=== PATIENT | female | born 1995 | race Caucasian/White ===

== ENCOUNTER 2018-11-19 06:49 | Emergency (ER) | payer BC, OTHER ==
[~2018-11-19] VITALS: Ht 157.5 cm; Wt 72.7 kg
[2018-11-19] MEDS ORDERED: FLUO20CA19 (06:57)
[2018-11-19] MEDS ORDERED: ALPR1TAB3 (06:57)
[2018-11-19] MEDS ORDERED: VITA1TAB23 PO (06:57)
[2018-11-19] MEDS ORDERED: NORCO, ANEXSIA 5/325MG TABLET (HYDROcodone/ACETAMINOPHEN) PO ONE (07:30)
--- NOTE | 2018-11-19 08:02 | REP ---
Clinical: Trauma/fall with neck pain . Technique: AP, lateral, and swimmers views. Findings: Alignment and lordosis is maintained. There is no evidence for acute fracture / compression injury or subluxation. No significant degenerative changes are appreciated. Impression: Normal cervical spine series. Electronically Signed by Osmin Grider MD 11/19/2018 07:54 A
--- NOTE | 2018-11-19 08:03 | REP ---
Clinical: Fall with bilateral hip pain. Technique: Frontal view of the pelvis with neutral and frog lateral views of the right and left hip. Findings: Osseous structures and joint spaces are intact and normal. Hip joints appear symmetric on frontal pelvic radiograph. No acute fracture dislocation. No evidence for healed injury. No significant degenerative or congenital abnormalities are appreciated. Surrounding soft tissues are unremarkable. Impression: Normal pelvis and bilateral hip series. Electronically Signed by Osmin Grider MD 11/19/2018 07:55 A
--- NOTE | 2018-11-19 08:11 | REP ---
Clinical: Trauma/fall with lower back pain. Comparison: 09/24/2015 . Technique: AP, lateral, bilateral oblique, and coned-down views. Findings: Alignment and lordosis is maintained. There is evidence to suggest a limbus vertebra versus old fracture involving the anterior-superior margin of the L2 which is unchanged compared to 09/24/2015. Remainder examination is normal. Impression: No acute lumbosacral spine trauma/injury. Alignment and lordosis maintained. Electronically Signed by Osmin Grider MD 11/19/2018 08:03 A
--- NOTE | 2018-11-19 08:15 | REP ---
Clinical: Fall with back pain. Technique: AP and lateral thoracic spine radiographs. Findings: There appears to be an old asymmetric compression deformity involving the right side of the T8 as well as limbus vertebra versus old fracture involving L2. There is no evidence for acute fracture / compression injury or subluxation. Impression: Chronic findings. No acute fracture or subluxation. Electronically Signed by Osmin Grider MD 11/19/2018 08:06 A
[2018-11-19] MEDS ORDERED: ROBA500T PO (08:24)
[2018-11-19] MEDS ORDERED: NAPR-885 PO (08:24)
[2018-11-19] MEDS ORDERED: CYCLOBENZAPRINE 10 MG TAB PO ONE (08:30)
[2018-11-19 08:36] VITALS: BP 120/63
[2018-11-19] MEDS ORDERED: KETOROLAC 60 MG/2 ML VIAL (J1885) IM ONE (08:45)
== END 2018-11-19 09:05 | disposition home or self-care (01) ==
LOC: M ED 06:49
DX: M54.5 Low back pain (principal); W10.8XXA Fall (on) (from) other stairs and steps, initial encounter; Y92.098 Other place in other non-institutional residence as the place of occurrence of the external cause; F17.200 Nicotine dependence, unspecified, uncomplicated; Z88.0 Allergy status to penicillin; Z88.1 Allergy status to other antibiotic agents; Z79.899 Other long term (current) drug therapy
CPT/HCPCS: 72040; 72072; 72110; 73521; 96372; 99283; J1885

== ENCOUNTER 2019-01-21 10:58 | Emergency (ER) | payer BC, OTHER ==
[~2019-01-21] VITALS: Ht 157.5 cm; Wt 67.5 kg
[~2019-01-21 10:58] MED LIST: ALPR1TAB3 PO; FLUO20CA19; NAPR-885 PO; ROBA500T PO; VITA1TAB23 PO
[2019-01-21] MEDS ORDERED: PROZ20CA11 PO (11:07)
[2019-01-21] MEDS ORDERED: ACETAMINOPHEN TAB 650MG DOSE (2X325MG) PO ONE (11:45)
[2019-01-21 12:04] LABS: HEMATOCRIT 40.2 % (36.0-47.0); HEMOGLOBIN 13.6 g/dl (12.0-15.5); MEAN CORPUSCULAR HEMOGLOBIN 31.3 pg (27.0-33.0); MEAN CORPUSCULAR HGB CONC 33.8 g/dl (32.0-36.5); MEAN CORPUSCULAR VOLUME 92.6 fl (80.0-96.0); PLATELET COUNT, AUTOMATED 204 10^3/uL (150-450); RED BLOOD COUNT 4.34 10^6/uL (4.00-5.40)
[2019-01-21] MEDS ORDERED: CLEO300C2 PO (12:34)
[2019-01-21 12:42] VITALS: BP 118/72
== END 2019-01-21 12:49 | disposition home or self-care (01) ==
LOC: M ED 10:58
DX: J02.9 Acute pharyngitis, unspecified (principal); J35.8 Other chronic diseases of tonsils and adenoids; H92.03 Otalgia, bilateral; F41.9 Anxiety disorder, unspecified; F32.9 Major depressive disorder, single episode, unspecified; F17.210 Nicotine dependence, cigarettes, uncomplicated; Z88.0 Allergy status to penicillin; Z79.899 Other long term (current) drug therapy

== ENCOUNTER 2019-02-27 06:05 | Day surgery (SDC) | payer BC, OTHER ==
[~2019-02-27] VITALS: Ht 157.5 cm; Wt 65.5 kg
[~2019-02-27 06:05] MED LIST changes: +CLEO300C2 PO; +MULTCAP PO; +PROZ20CA11 PO
[2019-02-27 06:50] LABS: URINE PREG TEST NEGATIVE (NEGATIVE)
[2019-02-27] MEDS ORDERED: LIDOCAINE 2% INJ 100 MG/5 ML SDV (FOR ANES.) As Ordered ONE (06:51)
[2019-02-27] MEDS ORDERED: propofoL 200 MG/20 ML VIAL As Ordered ONE (06:51)
[2019-02-27] MEDS ORDERED: ROCURONIUM BROMIDE 50 MG/5 ML VIAL As Ordered ONE (06:51)
[2019-02-27] MEDS ORDERED: KETOROLAC 60 MG/2 ML VIAL (J1885) As Ordered ONE (06:54)
[2019-02-27] MEDS ORDERED: dexameTHASONE 4 MG/ML 1ML VIAL (J1100) As Ordered ONE (06:54)
[2019-02-27] MEDS ORDERED: ONDANSETRON 4MG/2ML VIAL (J2405) As Ordered ONE (06:54)
[2019-02-27] MEDS ORDERED: fentaNYL 100 MCG/2 ML INJECTION (J3010) As Ordered ONE (06:57)
[2019-02-27] MEDS ORDERED: MIDAZOLAM INJ 2 MG/2 ML VIAL (J2250) As Ordered ONE (06:57)
[2019-02-27] MEDS ORDERED: SUGAMMADEX SODIUM 500 MG/5 ML VIAL (BRIDION) As Ordered ONE (07:07)
[2019-02-27] MEDS: LIDOCAINE W/EPINEPHRINE 1% 20ML VIAL As Ordered ONE ×2 (07:55→07:58)
[2019-02-27] MEDS: BUPIVACAINE/EPIN 0.5% 30 ML VIAL As Ordered ONE ×2 (07:55→07:58)
[2019-02-27] MEDS ORDERED: ONDANSETRON 4MG/2ML VIAL (J2405) IV PRN (08:45)
[2019-02-27] MEDS ORDERED: fentaNYL 100 MCG/2 ML INJECTION (J3010) IV PRN (08:45)
[2019-02-27] MEDS ORDERED: NORCO, ANEXSIA 5/325MG TABLET (HYDROcodone/ACETAMINOPHEN) PO PRN (08:45)
[2019-02-27] MEDS ORDERED: LR 1,000 ML IV SCH ×2 (08:45)
[2019-02-27] MEDS ORDERED: ACETAMINOPH W/CODEINE #3 TAB UD PO PRN (09:00)
[2019-02-27] MEDS ORDERED: ACETAMINOPHEN/CODEINE 300MG/30MG 12.5 ML UDC PO PRN (09:25)
[2019-02-27 10:05] VITALS: BP 109/70
--- NOTE | 2019-02-27 12:12 | RO ---
DATE OF PROCEDURE: 02/27/2019 PREOPERATIVE DIAGNOSIS: Chronic tonsillitis. POSTOPERATIVE DIAGNOSIS: Chronic tonsillitis. PROCEDURE: Tonsillectomy. SURGEON: Shaw Olivo MD ASSISTANT INFANT TODDLER TEACHER: ANESTHESIA: DESCRIPTION OF PROCEDURE: Under general anesthesia with the patient intubated, a Knight-[place] mouth gag was inserted. The tonsil area was infiltrated with lidocaine and infiltrated with Marcaine. Using cautery, I dissected the tonsil free from its bed on both sides. The base and apex and other areas were cauterized with the suction cautery. The patient tolerated the procedure well. No blood loss. The patient extubated and transferred to the recovery room in excellent condition.
== END 2019-02-27 10:32 | disposition home or self-care (01) ==
LOC: M SDC 06:05
PROVIDERS: ATTEND Otolaryngology
DX: J35.01 Chronic tonsillitis (principal); F41.9 Anxiety disorder, unspecified; F17.210 Nicotine dependence, cigarettes, uncomplicated; Z88.0 Allergy status to penicillin; Z79.899 Other long term (current) drug therapy
CPT/HCPCS: 42826; 84703; 88302; J1100; J1885; J2250; J2405; J3010

== ENCOUNTER → 2019-06-05 | Outpatient (CLI) | payer BC, MEDICAID, OTHER, SELFPAY | LOC: M RAD 14:44 | PROVIDERS: ATTEND Nurse Practitioner Family | DX: Z53.9 Procedure and treatment not carried out, unspecified reason (principal) ==

== ENCOUNTER → 2019-08-29 | Outpatient (CLI) | payer OTHER ==
--- NOTE | 2019-08-29 16:16 | REP ---
Obstetric sonography: History: Supervision of for anatomy. Findings: Scanning through the gravid uterus demonstrate a single living intrauterine gestation in a breech lie. motion is observed and heart rate is recorded at 141 beats per minute. An anterior grade zero placenta is seen without evidence of previa or abruption. Amniotic fluid is subjectively normal. Closed cervical length was viewed transabdominally and measures 3.7 cm. No extrauterine abnormalities observed. There is a defect in the anterior abdominal wall to the left of the abdominal wall cord insertion with small bowel loops protruding through the defect floating in the amniotic fluid. The defect is approximate 7 mm in size. The finding is consistent with gastroschisis. No other anatomic abnormality is observed. The following additional anatomic structures are identified and felt to be unremarkable: cranium, choroid plexus, cavum, cerebellum posterior fossa, face and profile, lungs, four-chamber heart with left and right ventricular outflow tract views, diaphragm, left-sided stomach, three-vessel cord, kidneys and bladder, spine, upper and lower extremities. Biometry chart: BPD 4.3 cm 19 weeks 0 days Head circumference 15.1 cm 18 weeks 1 day abdominal circumference 12.1 cm 17 weeks 5 days Femur length 2.8 cm 18 weeks 4 days Humeral length 2.7 cm 18 weeks 3 days cerebellar diameter 1.9 cm 18 weeks 4 days HC/AC ratio normal 1.25 cephalic index normal 0.82 estimated weight 227 grams, 0 pounds 7 ounces, 41st percentile for 18 weeks 2 days. Impression: 1. Viable single intrauterine gestation 18 weeks 3 days by today's composite sonographic criteria. ETHEL by today's sonography January 27, 2020.2. There is a abnormality consistent with gastroschisis with small bowel loops protruding from the anterior abdominal wall defect into the amniotic fluid. Electronically Signed by Justin Bustillo MD 08/29/2019 06:01 P
== END ==
LOC: M RAD 12:56
PROVIDERS: ATTEND Specialist
DX: Z34.02 Encounter for supervision of normal first pregnancy, second trimester (principal)

== ENCOUNTER → 2019-09-07 | Outpatient (CLI) | payer MEDICAID, OTHER | LOC: M PLALAB 12:01 | PROVIDERS: ATTEND Specialist | DX: Z13.79 Encounter for other screening for genetic and chromosomal anomalies (principal) ==

== ENCOUNTER → 2019-11-09 | Outpatient (CLI) | payer OTHER ==
[~2019-11-09] MED LIST changes: -FLUO20CA19; +FLUO20CA22
[2019-11-09 13:45] LABS: HEMATOCRIT 33.7 % (36.0-47.0); HEMOGLOBIN 11.5 g/dl (12.0-15.5); MEAN CORPUSCULAR HEMOGLOBIN 31.6 pg (27.0-33.0); MEAN CORPUSCULAR HGB CONC 34.1 g/dl (32.0-36.5); MEAN CORPUSCULAR VOLUME 92.6 fl (80.0-96.0); PLATELET COUNT, AUTOMATED 245 10^3/uL (150-450); RED BLOOD COUNT 3.64 10^6/uL (4.00-5.40); WHITE BLOOD COUNT 10.6 10^3/uL (4.0-10.0)
== END ==
LOC: M LAB 11:57
PROVIDERS: ATTEND Specialist
DX: Z34.82 Encounter for supervision of other normal pregnancy, second trimester (principal)

== ENCOUNTER 2019-12-20 06:18 | Inpatient (IN) | payer MEDICAID, OTHER ==
[~2019-12-20] VITALS: Ht 157.5 cm; Wt 82.2 kg
[2019-12-20] VITALS (8 sets, daily range): BP systolic 97–114; BP diastolic 55–73
[2019-12-20] MEDS ORDERED: LR 1,000 ML IV SCH (08:14)
[2019-12-20] MEDS ORDERED: LACTATED RINGER'S 1000 ML IV STA (08:14)
[2019-12-20] MEDS ORDERED: BICITRA 30ML SOLN UDC As Ordered ONE (08:44)
[2019-12-20] MEDS ORDERED: ceFAZolin 2 GM/D5W 50 ML IV BAG (J0690 PER 500MG) As Ordered ONE (08:44)
[2019-12-20] MEDS ORDERED: ceFAZolin SOD 2 GM in IV 1 EA IV ONE (08:45)
[2019-12-20] MEDS ORDERED: BICITRA 30ML SOLN UDC PO ONE (08:45)
[2019-12-20] MEDS ORDERED: AZITHROMYCIN INJ 500 MG, VIAL MATE ADAPTER 1 EACH in D5W 250 ML IV ONE (08:45)
[2019-12-20] MEDS ORDERED: AZITHROMYCIN INJ 500MG VIAL (J0456 PER 500MG) As Ordered ONE (08:45)
[2019-12-20 08:54] LABS: HEMATOCRIT 37.4 % (36.0-47.0); HEMOGLOBIN 12.7 g/dl (12.0-15.5); MEAN CORPUSCULAR HEMOGLOBIN 30.9 pg (27.0-33.0); PLATELET COUNT, AUTOMATED 267 10^3/uL (150-450); RED BLOOD COUNT 4.11 10^6/uL (4.00-5.40); WHITE BLOOD COUNT 13.6 10^3/uL (4.0-10.0)
[2019-12-20] MEDS ORDERED: CLINDAMYCIN 900 MG in IV 1 EA IV ONE (09:00)
[2019-12-20] MEDS ORDERED: MORPHINE PRES-FREE INJ 10 MG/10 ML VIAL (J2274) As Ordered ONE (09:00)
[2019-12-20] MEDS ORDERED: OXYTOCIN 30 UNITS IN 0.9% NaCl 500ML IV BAG (J2590) As Ordered ONE ×2 (09:00→11:18)
[2019-12-20] MEDS ORDERED: GENTAMICIN 400 MG in D5W 50 ML IV ONE (09:00)
[2019-12-20] MEDS ORDERED: ONDANSETRON 4MG/2ML VIAL IV PRN ×2 (09:44→11:15)
[2019-12-20] MEDS ORDERED: NALOXONE INJ 0.4MG/1ML VIAL (J2310 PER 1MG) IV PRN ×2 (09:44)
[2019-12-20] MEDS ORDERED: diphenhydrAMINE 50MG/ML VIAL (J1200) IV PRN (09:44)
[2019-12-20] MEDS ORDERED: METOCLOPRAMIDE INJ 10MG/2ML VIAL (J2765 PER 1) IV PRN (09:44)
[2019-12-20] MEDS ORDERED: NALBUPHINE HCL 10 MG/ML AMP (J2300) IV PRN (09:44)
[2019-12-20] MEDS ORDERED: OXYTOCIN INJ 10 UNITS/ML VIAL (J2590) As Ordered ONE (09:49)
[2019-12-20] MEDS ORDERED: ROCURONIUM BROMIDE 50 MG/5 ML VIAL As Ordered ONE (09:55)
[2019-12-20] MEDS ORDERED: propofoL 200 MG/20 ML VIAL As Ordered ONE ×2 (09:55→10:47)
[2019-12-20] MEDS ORDERED: LIDOCAINE 2% 100MG/5ML SDV (FOR ANES.) As Ordered ONE (09:55)
[2019-12-20] MEDS ORDERED: MIDAZOLAM INJ 2MG/2ML VIAL (J2250 PER 1MG) As Ordered ONE (10:03)
[2019-12-20] MEDS ORDERED: fentaNYL 100 MCG/2 ML INJECTION (J3010) As Ordered ONE ×2 (10:04→11:10)
[2019-12-20] MEDS ORDERED: PHENYLephrine HCL 500 MCG/5 ML (100MCG/ML) SYRINGE (J2370) As Ordered ONE (10:16)
[2019-12-20 10:19] LABS: CORD GAS ABE V -3.1; CORD GAS HCO3 V 22.7 MEQ/L; CORD GAS O2 SAT V 99.7 %; CORD GAS PCO2 V 43.3 mmHg; CORD GAS PH V 7.338 UNITS; CORD GAS PO2 V 136.3 mmHg; CORD GAS TCO2 V 24.1 MEQ/L
[2019-12-20 10:22] LABS: CORD GAS ABE A -4.6; CORD GAS HCO3 A 21.5 MEQ/L; CORD GAS O2 SAT A 96.2 %; CORD GAS PCO2 A 43.2 mmHg; CORD GAS PH A 7.315 UNITS; CORD GAS PO2 A 63.5 mmHg; CORD GAS SBC A 20.7 MEQ/L; CORD GAS TCO2 A 22.8 MEQ/L
[2019-12-20] MEDS ORDERED: ACETAMINOPHEN 1000MG 100ML IV BTL (OFIRMEV) (J0131 PER 10MG) As Ordered ONE (10:24)
[2019-12-20] MEDS ORDERED: KETOROLAC 60 MG/2 ML VIAL As Ordered ONE (10:26)
[2019-12-20] MEDS ORDERED: SUGAMMADEX SODIUM 500 MG/5 ML VIAL (BRIDION) As Ordered ONE (10:28)
[2019-12-20] MEDS ORDERED: ONDANSETRON 4 MG TAB PO PRN (10:45)
[2019-12-20] MEDS ORDERED: RHOGAM 300 MCG (1500 IU) INJ (J2790) IM SCH (10:45)
[2019-12-20] MEDS ORDERED: ACETAMINOPHEN 500 MG TAB PO PRN (10:45)
[2019-12-20] MEDS ORDERED: PERCOCET 5MG/325MG TAB PO PRN (10:45)
[2019-12-20] MEDS ORDERED: OXYTOCIN DRIP 30 UNITS in IV 1 EA IV SCH (10:45)
[2019-12-20] MEDS ORDERED: MEASLES,MUMPS,RUBELLA VACCINE INJ (MMR-II) (90707) SC SCH (10:45)
[2019-12-20] MEDS ORDERED: PROMETHAZINE 25 MG TAB PO PRN (10:45)
[2019-12-20] MEDS ORDERED: oxyCODONE 5MG TAB As Ordered ONE ×2 (11:10→11:44)
[2019-12-20] MEDS ORDERED: IBUP80TA PO (11:11)
[2019-12-20] MEDS ORDERED: PERCOCET PO (11:11)
[2019-12-20] MEDS ORDERED: DOCU100C16 PO (11:11)
[2019-12-20] MEDS ORDERED: MORPHINE 2 MG/ML 1ML VIAL (J2270) IV PRN (11:15)
[2019-12-20] MEDS: fentaNYL 100 MCG/2 ML INJECTION (J3010) IV PRN ×4 (11:16→11:35)
[2019-12-20] MEDS: oxyCODONE 5MG TAB PO PRN ×2 (11:17→11:53)
[2019-12-20 12:13] LABS: HEPATITIS C VIRUS ABY INDEX 0.1 INDEX (<0.8); HIV 1&2 SCREEN CENTAUR NEGATIVE (NEGATIVE)
[2019-12-20] MEDS: LR 1,000 ML IV SCH ×2 (12:58→21:36)
[2019-12-20] MEDS: PERCOCET 5MG/325MG TAB PO PRN (15:55)
[2019-12-20] MEDS: KETOROLAC 30 MG/ML 1ML VIAL IV SCH ×2 (16:51→22:52)
[2019-12-20] MEDS: DOCUSATE SODIUM 100 MG CAP PO SCH (20:48)
[2019-12-21] MEDS: PERCOCET 5MG/325MG TAB PO PRN (02:42)
[2019-12-21 02:48] VITALS: BP 106/67
[2019-12-21] MEDS: KETOROLAC 30 MG/ML 1ML VIAL IV SCH (05:17)
[2019-12-21 06:06] VITALS: BP 106/71
[2019-12-21 07:17] LABS: HEMATOCRIT 28.1 % (36.0-47.0); MEAN CORPUSCULAR HEMOGLOBIN 30.9 pg (27.0-33.0); MEAN CORPUSCULAR HGB CONC 33.5 g/dl (32.0-36.5); MEAN CORPUSCULAR VOLUME 92.4 fl (80.0-96.0); PLATELET COUNT, AUTOMATED 233 10^3/uL (150-450); RED BLOOD COUNT 3.04 10^6/uL (4.00-5.40); WHITE BLOOD COUNT 16.5 10^3/uL (4.0-10.0)
[2019-12-21 07:22] LABS: HEMOGLOBIN 9.4 g/dl (12.0-15.5)
[2019-12-21] MEDS ORDERED: BOOSTRIX/ADACEL VACCINE (DIPHTH/PERTUSS/ACELL/TETANUS) 0.5ML SYR IM ONE (09:00)
[2019-12-21] MEDS ORDERED: PRENATAL VITAMINS CHEWABLE TABLET PO SCH (09:00)
[2019-12-21] MEDS: DOCUSATE SODIUM 100 MG CAP PO SCH (09:00)
[2019-12-21 10:00] VITALS: BP 99/57
[2019-12-21] MEDS ORDERED: IBUPROFEN 800 MG TAB PO SCH (13:00)
--- NOTE | 2019-12-23 13:46 | DSES ---
DATE OF ADMISSION: 12/20/2019 DATE OF DISCHARGE: 12/21/2019 A 24-year-old G1 at 34 weeks gestation presents with regular contractions and leaking fluid. Her course is significant for gastroschises diagnosed early on. She has been seen at the center in consultation for this. HOSPITAL COURSE: Patient was evaluated and found to be in early labor with ruptured membranes on 12/20/2019. She was admitted to the hospital at that point. Initial plan was to attempt a vaginal delivery with known history of gastroschises; however, heart rate tracing became nonreassuring, in early labor, remote from delivery, and the decision was made to perform section. On 12/20/2019 patient underwent section for a 4-pound 15-ounce infant, scores 8 and 9. Patient's postoperative course was unremarkable. She had adequate return of bladder and bowel function. Her postoperative hemoglobin was 9.4 grams per deciliter. The baby was transferred to [facility] in [place] for further management. The patient strongly desired discharge on postoperative day #1 in order to be with the baby. The patient was discharged on postoperative day #1. ADMISSION DIAGNOSIS: at 34 weeks, labor. gastroschises. POSTOPERATIVE DIAGNOSIS: Delivered. PROCEDURE: Primary low transverse section. DISPOSITION: The patient will followup with Dr. Barrientos in 2 weeks. Instructions were reviewed.
== END 2019-12-21 11:25 | disposition home or self-care (01) | DRG 540 ==
LOC: M LDO 06:18 → M LDI 08:40 → M OBS 12:24
PROVIDERS: ADMIT Obstetrics & Gynecology; ATTEND Obstetrics & Gynecology
PROC: 10D00Z1 Extraction of Products of Conception, Low, Open Approach (ICD-10-PCS; principal; 2019-12-20 09:00)
DX: O42.013 Preterm premature rupture of membranes, onset of labor within 24 hours of rupture, third trimester (principal); O36.5930 Maternal care for other known or suspected poor fetal growth, third trimester, not applicable or unspecified; O76 Abnormality in fetal heart rate and rhythm complicating labor and delivery; Z3A.34 34 weeks gestation of pregnancy; Z37.0 Single live birth; O35.1XX0 Maternal care for (suspected) chromosomal abnormality in fetus, not applicable or unspecified

== ENCOUNTER → 2020-09-30 | Outpatient (REF) | payer OTHER, MEDICAID ==
[~2020-09-30] MED LIST changes: +ASCO250T20 PO; +DOCU100C16 PO; +IBUP80TA PO; +PERCOCET PO; -VITA1TAB23 PO
[2020-09-30 17:52] LABS: BASO % 0.4 % (0.0-1.0); EOS # 0.1 10^3/uL (0.0-0.5); EOS % 2.1 % (0.0-3.0); HEMATOCRIT 44.3 % (36.0-47.0); HEMOGLOBIN 14.5 g/dl (12.0-15.5); LYMPH # 2.2 10^3/uL (1.5-5.0); LYMPH % 31.7 % (24.0-44.0); MEAN CORPUSCULAR HEMOGLOBIN 29.8 pg (27.0-33.0); MEAN CORPUSCULAR HGB CONC 32.7 g/dl (32.0-36.5); MEAN CORPUSCULAR VOLUME 91.2 fl (80.0-96.0); MONO # 0.6 10^3/uL (0.0-0.8); MONO % 8.7 % (0.0-8.0); NEUTROPHILS # 3.9 10^3/uL (1.5-8.5); NEUTROPHILS % 56.8 % (36.0-66.0); PLATELET COUNT, AUTOMATED 294 10^3/uL (150-450); RED BLOOD COUNT 4.86 10^6/uL (4.00-5.40); WHITE BLOOD COUNT 6.8 10^3/uL (4.0-10.0)
[2020-09-30 18:06] LABS: ALBUMIN 3.9 GM/DL (3.2-5.2); ALT/SGPT 17 U/L (12-78); BILIRUBIN,TOTAL 0.4 MG/DL (0.2-1.0); BLOOD UREA NITROGEN 7 MG/DL (7-18); CALCIUM LEVEL 9.1 MG/DL (8.5-10.1); CARBON DIOXIDE LEVEL 26 MEQ/L (21-32); CHLORIDE LEVEL 108 MEQ/L (98-107); GLOMERULAR FILTRATION RATE > 60.0 (>60); GLUCOSE, FASTING 75 MG/DL (70-100); LIPASE 152 U/L (73-393); SODIUM LEVEL 142 MEQ/L (136-145); THYROGLOBULIN ANTIBODY 69.4 U/ML (<60.0); THYROID PEROXIDASE ANTIBODY > 1300.0 U/ML (<60.0); TOTAL PROTEIN 7.4 GM/DL (6.4-8.2)
== END ==
LOC: M LAB REF 16:10
PROVIDERS: ATTEND Physician Assistant
DX: R63.5 Abnormal weight gain (principal); Z83.49 Family history of other endocrine, nutritional and metabolic diseases; R10.13 Epigastric pain

== ENCOUNTER → 2020-10-17 | Outpatient (CLI) | payer OTHER ==
--- NOTE | 2020-10-17 12:06 | REP ---
INDICATION: AUTOIMMUNE THYROIDITIS COMPARISON: None. TECHNIQUE: Calderón scale and color evaluation of the thyroid gland using the linear high frequency transducer. FINDINGS: The thyroid gland is moderately heterogeneous with relatively normal symmetric parenchymal vascularity. Right thyroid lobe measures 4.2 x 1.4 x 1.6 cm without discrete nodule or cyst. Left thyroid lobe measures 3.9 x 1.8 x 1.6 cm and includes 5 x 6 x 5 mm upper pole complex cyst with few scattered punctate calcifications. Isthmus measures 4 mm in width. IMPRESSION: Heterogeneous thyroid gland is nonspecific in appearance. Single small complex 6 mm left upper pole cyst. <Electronically signed by Osmin Grider > 10/17/20 [id number]
== END ==
LOC: M RAD 11:23
PROVIDERS: ATTEND Physician Assistant
DX: E06.3 Autoimmune thyroiditis (principal)

== ENCOUNTER → 2020-11-11 | Outpatient (REF) | payer OTHER | LOC: M LAB REF 17:10 | PROVIDERS: ATTEND Internal Medicine Endocrinology, Diabetes & Metabolism | DX: E04.1 Nontoxic single thyroid nodule (principal) ==

== ENCOUNTER 2020-11-22 19:57 | Emergency (ER) | payer OTHER ==
[~2020-11-22] VITALS: Ht 157.5 cm; Wt 88.5 kg
[2020-11-22] MEDS ORDERED: CYCL-707 PO (20:19)
[2020-11-22] MEDS ORDERED: MELO7.5T35 PO (20:19)
[2020-11-22] MEDS ORDERED: ASPIRIN 81 MG CHEW TABLET PO ONE (20:35)
[2020-11-22 20:52] LABS: BASO % 0.3 % (0.0-1.0); EOS # 0.1 10^3/uL (0.0-0.5); EOS % 2.3 % (0.0-3.0); HEMATOCRIT 43.5 % (36.0-47.0); HEMOGLOBIN 14.4 g/dl (12.0-15.5); LYMPH # 1.8 10^3/uL (1.5-5.0); LYMPH % 29.4 % (24.0-44.0); MEAN CORPUSCULAR HEMOGLOBIN 29.7 pg (27.0-33.0); MEAN CORPUSCULAR HGB CONC 33.1 g/dl (32.0-36.5); MEAN CORPUSCULAR VOLUME 89.7 fl (80.0-96.0); MONO # 0.8 10^3/uL (0.0-0.8); MONO % 13.5 % (2.0-8.0); NEUTROPHILS # 3.4 10^3/uL (1.5-8.5); NEUTROPHILS % 54.2 % (36.0-66.0); PLATELET COUNT, AUTOMATED 257 10^3/uL (150-450); RED BLOOD COUNT 4.85 10^6/uL (4.00-5.40); WHITE BLOOD COUNT 6.2 10^3/uL (4.0-10.0)
[2020-11-22 21:06] LABS: INR 0.94; PROTHROMBIN TIME 12.8 SECONDS (12.5-14.3)
--- NOTE | 2020-11-22 21:17 | ECGEPIP ---
[facility] - ED Test Date: 2020-11-22 Pat Name: IBETH SANCHEZ Department: Room: - Gender: Female Operations Project Manager: Sigrid PEREIRA : 1995 Requested By: LULA ALEXIS Order Number: [id number] Reading MD: Tonio Conley Measurements Intervals [place] Rate: 97 P: 33 MI: 118 QRS: 55 QRSD: 100 T: 16 QT: 362 QTc: 459 Interpretive Statements Normal sinus rhythm Nonspecific ST and T wave abnormality SIMILAR TO 12/12/14 Electronically Signed on 11-22-2020 21:17:03 EDT by Tonio Conley
[2020-11-22 21:20] LABS: ALBUMIN 3.7 GM/DL (3.2-5.2); ALT/SGPT 19 U/L (12-78); BILIRUBIN,DIRECT < 0.1 MG/DL (0.0-0.2); BILIRUBIN,TOTAL 0.3 MG/DL (0.2-1.0); BLOOD UREA NITROGEN 14 MG/DL (7-18); CALCIUM LEVEL 9.3 MG/DL (8.5-10.1); CARBON DIOXIDE LEVEL 27 MEQ/L (21-32); CHLORIDE LEVEL 108 MEQ/L (98-107); CREATININE FOR GFR 0.73 MG/DL (0.55-1.30); GLOMERULAR FILTRATION RATE > 60.0 (>60); GLUCOSE, FASTING 90 MG/DL (70-100); POTASSIUM SERUM 3.8 MEQ/L (3.5-5.1); SODIUM LEVEL 141 MEQ/L (136-145); TOTAL PROTEIN 7.4 GM/DL (6.4-8.2)
--- NOTE | 2020-11-22 21:50 | REPVR ---
PROCEDURE INFORMATION: Exam: XR Chest Exam date and time: 11/22/20 (9:00pm) Age: 25 years old Clinical indication: Chest pain TECHNIQUE: Imaging protocol: Portable CXR Views: 1 view COMPARISON: Abdomen plain films + CXR of 01/12/15 FINDINGS: Lungs: Unremarkable. No consolidation. Pleural spaces: Unremarkable. No pleural effusions. No pneumothorax. Heart/Mediastinum: Unremarkable. No cardiomegaly. Bones/joints: Unremarkable. IMPRESSION: No acute findings. Lung anthony remain clear. Electronically signed by: Rosalinda Crawley On 11/22/2020 21:50:55 PM
[2020-11-22 21:54] VITALS: BP 103/68
== END 2020-11-22 22:02 | disposition home or self-care (01) ==
LOC: M ED 19:57
DX: F43.0 Acute stress reaction (principal); E07.9 Disorder of thyroid, unspecified; Z79.899 Other long term (current) drug therapy; Z88.0 Allergy status to penicillin

== ENCOUNTER → 2021-01-02 | Outpatient (REF) | payer OTHER ==
[~2021-01-02] MED LIST changes: +CYCL-707 PO; +MELO7.5T35 PO
[2021-01-02 16:03] LABS: FREE T4 0.94 NG/DL (0.76-1.46); THYROID STIMULATING HORMONE 0.496 uIU/ML (0.358-3.740)
== END ==
LOC: M PLALAB 14:45
PROVIDERS: ATTEND Nurse Practitioner Family
DX: E06.3 Autoimmune thyroiditis (principal)

== ENCOUNTER → 2021-01-29 | Outpatient (CLI) | payer OTHER ==
[~2021-01-29] MED LIST changes: +ONDA4TAB6 PO
--- NOTE | 2021-01-29 16:08 | REP ---
INDICATION: PREG DATING VIABILITY 8+ WKS. COMPARISON: None. TECHNIQUE: Transabdominal and transvesical scanning. FINDINGS: Within the uterus there is an anechoic structure seen with increased echoes surrounding it consistent with a decidual reaction. Within the gestational sac there is echogenic material consistent with a pole the mean crown-rump length measurement of which is consistent with a 7 week 6 day gestational age. Based on that the estimated date of delivery is 09/11/2021. Doppler interrogation of the heart shows a heart rate of 165 beats per minute. A tiny anechoic structure seen within the gestational sac consistent with a yolk sac. The maternal adnexal spaces are within normal limits. IMPRESSION: Early OB ultrasound as described above. <Electronically signed by Bossman Denney > 01/29/21 [id number]
== END ==
LOC: M RAD 13:51
PROVIDERS: ATTEND Nurse Practitioner Family
DX: Z32.01 Encounter for pregnancy test, result positive (principal)

== ENCOUNTER → 2021-02-24 | Outpatient (CLI) | payer OTHER ==
[2021-02-24 17:48] LABS: FREE T4 1.03 NG/DL (0.76-1.46); THYROID STIMULATING HORMONE 0.306 uIU/ML (0.358-3.740)
== END ==
LOC: M PLALAB 15:07
PROVIDERS: ATTEND Nurse Practitioner Family
DX: E06.3 Autoimmune thyroiditis (principal)

== ENCOUNTER → 2021-02-25 | Outpatient (CLI) | payer OTHER ==
[~2021-02-25] MED LIST changes: +COLA100C5 PO; +PRENTAB53 PO
[2021-02-25 18:05] LABS: HEMATOCRIT 39.5 % (36.0-47.0); HEMOGLOBIN 13.4 g/dl (12.0-15.5); MEAN CORPUSCULAR HEMOGLOBIN 29.3 pg (27.0-33.0); MEAN CORPUSCULAR HGB CONC 33.9 g/dl (32.0-36.5); MEAN CORPUSCULAR VOLUME 86.4 fl (80.0-96.0); PLATELET COUNT, AUTOMATED 272 10^3/uL (150-450); RED BLOOD COUNT 4.57 10^6/uL (4.00-5.40); WHITE BLOOD COUNT 11.5 10^3/uL (4.0-10.0)
[2021-02-25 19:05] LABS: HIV 1&2 SCREEN CENTAUR NEGATIVE (NEGATIVE)
== END ==
LOC: M PLALAB 15:03
PROVIDERS: ATTEND Obstetrics & Gynecology
DX: O09.291 Supervision of pregnancy with other poor reproductive or obstetric history, first trimester (principal)

== ENCOUNTER → 2021-03-11 | Outpatient (CLI) | payer OTHER ==
[~2021-03-11] MED LIST changes: -COLA100C5 PO; -PRENTAB53 PO
== END ==
LOC: M PLALAB 12:37
PROVIDERS: ATTEND Obstetrics & Gynecology
DX: Z34.82 Encounter for supervision of other normal pregnancy, second trimester (principal)

== ENCOUNTER → 2021-05-05 | Outpatient (CLI) | payer OTHER ==
[~2021-05-05] MED LIST changes: +COLA100C5 PO; +PRENTAB53 PO
== END ==
LOC: M WHC 10:27
PROVIDERS: ATTEND Obstetrics & Gynecology
DX: Z34.92 Encounter for supervision of normal pregnancy, unspecified, second trimester (principal)

== ENCOUNTER → 2021-07-15 | Outpatient (CLI) | payer OTHER, MEDICAID ==
[2021-07-15 15:35] LABS: HEMATOCRIT 35.3 % (36.0-47.0); HEMOGLOBIN 11.7 g/dl (12.0-15.5); MEAN CORPUSCULAR HEMOGLOBIN 29.8 pg (27.0-33.0); MEAN CORPUSCULAR HGB CONC 33.1 g/dl (32.0-36.5); MEAN CORPUSCULAR VOLUME 89.8 fl (80.0-96.0); PLATELET COUNT, AUTOMATED 293 10^3/uL (150-450); RED BLOOD COUNT 3.93 10^6/uL (4.00-5.40); WHITE BLOOD COUNT 11.5 10^3/uL (4.0-10.0)
[2021-07-15 17:21] LABS: GC DNA AMPLIFICATION NEGATIVE (NEGATIVE)
== END ==
LOC: M PLALAB 11:49
PROVIDERS: ATTEND Obstetrics & Gynecology
DX: O34.211 Maternal care for low transverse scar from previous cesarean delivery (principal)

== ENCOUNTER → 2021-08-12 | Outpatient (REF) | payer OTHER, MEDICAID | LOC: M SFHCWAGY 17:13 | PROVIDERS: ATTEND Obstetrics & Gynecology | DX: O34.211 Maternal care for low transverse scar from previous cesarean delivery (principal) ==

== ENCOUNTER 2021-09-03 16:23 | Inpatient (IN) | payer OTHER, MEDICAID ==
[~2021-09-03] VITALS: Ht 157.5 cm; Wt 91.2 kg
[~2021-09-03 16:23] MED LIST changes: -COLA100C5 PO
[2021-09-03 16:47] VITALS: BP 109/59
[2021-09-03] MEDS ORDERED: BICITRA 30ML SOLN UDC PO ONE (17:25)
[2021-09-03] MEDS ORDERED: METHYLERGONOVINE MALEATE 0.2 MG/ML VIAL (J2210) IM PRN (17:25)
[2021-09-03] MEDS ORDERED: OXYTOCIN INJ 10 UNITS/ML VIAL (J2590) IM PRN (17:25)
[2021-09-03] MEDS ORDERED: CLINDAMYCIN 900 MG in IV 1 EA IV ONE (17:25)
[2021-09-03] MEDS ORDERED: LACTATED RINGER'S 1000 ML IV STA (17:25)
[2021-09-03] MEDS ORDERED: OXYTOCIN DRIP 30 UNITS in IV 1 EA IV PRN ×4 (17:25)
[2021-09-03] MEDS ORDERED: TRANEXAMIC ACID INJection 1,000 MG in NS 100 ML IV PRN (17:25)
[2021-09-03] MEDS ORDERED: CARBOPROST TROMETHAMINE 250 MCG/ML AMP IM PRN (17:25)
[2021-09-03] MEDS: ONDANSETRON 4MG/2ML VIAL IV SCH ×2 (17:56→21:25)
[2021-09-03 18:17] LABS: HEMATOCRIT 39.3 % (36.0-47.0); MEAN CORPUSCULAR HGB CONC 33.1 g/dl (32.0-36.5); MEAN CORPUSCULAR VOLUME 90.6 fl (80.0-96.0); PLATELET COUNT, AUTOMATED 270 10^3/uL (150-450); RED BLOOD COUNT 4.34 10^6/uL (4.00-5.40); WHITE BLOOD COUNT 19.3 10^3/uL (4.0-10.0)
[2021-09-03] MEDS: LR 1,000 ML IV SCH (18:25)
[2021-09-03] MEDS ORDERED: GENTAMICIN 400 MG in D5W 100 ML IV ONE (18:30)
[2021-09-03] MEDS ORDERED: ACETAMINOPHEN 500 MG TAB PO ONE (19:25)
[2021-09-03 19:31] VITALS: BP 116/62
[2021-09-03 21:20] VITALS: BP 116/63
[2021-09-03] MEDS ORDERED: SIMETHICONE 80MG CHEW TAB PO PRN (22:30)
[2021-09-03] MEDS ORDERED: MEASLES,MUMPS,RUBELLA VACCINE INJ (MMR-II) (90707) SC SCH (22:30)
[2021-09-03] MEDS ORDERED: RHOGAM 300 MCG (1500 IU) INJ (J2790) IM SCH (22:30)
[2021-09-03] MEDS ORDERED: OXYTOCIN DRIP 30 UNITS in IV 1 EA IV SCH (22:30)
[2021-09-03] MEDS ORDERED: oxyCODONE 5MG TAB PO PRN (22:45)
[2021-09-03] MEDS ORDERED: ONDANSETRON 4MG/2ML VIAL IV PRN ×2 (22:45→23:55)
[2021-09-03] MEDS ORDERED: ONDANSETRON 4MG/2ML VIAL As Ordered ONE (22:51)
[2021-09-03] MEDS ORDERED: KETOROLAC 60MG 2ML VIAL As Ordered ONE (22:51)
[2021-09-03] MEDS ORDERED: ROCURONIUM BROMIDE 50 MG/5 ML VIAL As Ordered ONE (22:51)
[2021-09-03] MEDS ORDERED: MIDAZOLAM INJ 2MG/2ML VIAL (J2250 PER 1MG) As Ordered ONE (22:51)
[2021-09-03] MEDS ORDERED: fentaNYL 100 MCG/2 ML INJECTION (J3010) As Ordered ONE (22:51)
[2021-09-03] MEDS ORDERED: propofoL 200 MG/20 ML VIAL As Ordered ONE (22:51)
[2021-09-03] MEDS ORDERED: MORPHINE PRES-FREE INJ 10 MG/10 ML VIAL (J2274) As Ordered ONE (22:51)
[2021-09-03] MEDS ORDERED: dexameTHASONE 4 MG/ML 1ML VIAL (J1100 PER 1MG) As Ordered ONE (22:51)
[2021-09-03] MEDS ORDERED: OXYTOCIN 30 UNITS IN 0.9% NaCl 500ML IV BAG (J2590) As Ordered ONE (22:51)
[2021-09-03] MEDS ORDERED: SUGAMMADEX SODIUM 500 MG/5 ML VIAL (BRIDION) As Ordered ONE (22:51)
[2021-09-03] MEDS: fentaNYL 100 MCG/2 ML INJECTION (J3010) IV PRN ×2 (23:22→23:27)
[2021-09-04] VITALS (9 sets, daily range): BP systolic 114–148; BP diastolic 61–80
[2021-09-04] MEDS: KETOROLAC 30 MG/ML 1ML VIAL IV SCH ×4 (00:12→17:02)
[2021-09-04] MEDS ORDERED: oxyCODONE 5MG TAB PO ONE (00:25)
[2021-09-04] MEDS: LR 1,000 ML IV SCH ×2 (00:42→09:47)
[2021-09-04] MEDS: PERCOCET 5MG/325MG TAB PO PRN ×5 (04:56→20:28)
[2021-09-04 08:09] LABS: HEMATOCRIT 30.9 % (36.0-47.0); MEAN CORPUSCULAR HEMOGLOBIN 30.1 pg (27.0-33.0); MEAN CORPUSCULAR HGB CONC 33.7 g/dl (32.0-36.5); MEAN CORPUSCULAR VOLUME 89.6 fl (80.0-96.0); PLATELET COUNT, AUTOMATED 236 10^3/uL (150-450); RED BLOOD COUNT 3.45 10^6/uL (4.00-5.40); WHITE BLOOD COUNT 12.3 10^3/uL (4.0-10.0)
[2021-09-04 08:18] LABS: HEMOGLOBIN 10.4 g/dl (12.0-15.5)
[2021-09-04] MEDS: PRENATAL VITAMINS CHEWABLE TABLET PO SCH (08:51)
[2021-09-04] MEDS: DOCUSATE SODIUM 100MG CAPSULE PO SCH ×2 (08:51→20:27)
[2021-09-05] MEDS: IBUPROFEN 800 MG TAB PO SCH ×2 (00:04→08:41)
[2021-09-05 02:00] VITALS: BP 120/59
[2021-09-05] MEDS: PERCOCET 5MG/325MG TAB PO PRN (05:45)
[2021-09-05 06:00] VITALS: BP 117/61
[2021-09-05] MEDS: DOCUSATE SODIUM 100MG CAPSULE PO SCH (08:41)
[2021-09-05] MEDS: PRENATAL VITAMINS CHEWABLE TABLET PO SCH (08:41)
[2021-09-05 10:00] VITALS: BP 132/82
[2021-09-05] MEDS ORDERED: PERCOCET PO (10:42)
[2021-09-05] MEDS ORDERED: IBUP80TA PO (10:42)
[2021-09-05] MEDS ORDERED: COLA100C5 PO (10:42)
== END 2021-09-05 12:10 | disposition home or self-care (01) | DRG 540 ==
LOC: M LDO 16:23 → M LDI 17:03 → M OBS 09-04 → M PED 09-04 08:43 → M OBS 09-04 08:45
PROVIDERS: ADMIT Advanced Practice Midwife; ATTEND Specialist
PROC: 0UB70ZZ Excision of Bilateral Fallopian Tubes, Open Approach (ICD-10-PCS; 2021-09-03)
PROC: 10D00Z1 Extraction of Products of Conception, Low, Open Approach (ICD-10-PCS; principal; 2021-09-03 09:30)
DX: O99.62 Diseases of the digestive system complicating childbirth (principal); A08.4 Viral intestinal infection, unspecified; Z3A.38 38 weeks gestation of pregnancy; O34.211 Maternal care for low transverse scar from previous cesarean delivery; Z20.822 Contact with and (suspected) exposure to COVID-19; O75.82 Onset (spontaneous) of labor after 37 completed weeks of gestation but before 39 completed weeks gestation, with delivery by (planned) cesarean section; Z37.0 Single live birth; Z30.2 Encounter for sterilization

== ENCOUNTER 2021-10-26 19:34 | Emergency (ER) | payer MEDICAID, OTHER ==
[~2021-10-26] VITALS: Ht 157.5 cm; Wt 86.0 kg
[2021-10-26 19:34] VITALS: BP 132/73
[~2021-10-26 19:34] MED LIST changes: +COLA100C5 PO
[2021-10-26] MEDS ORDERED: CLINDAMYCIN 150MG CAPSULE PO ONE (20:45)
[2021-10-26] MEDS ORDERED: NORCO, ANEXSIA 5/325MG TABLET (HYDROcodone/ACETAMINOPHEN) PO ONE (20:45)
[2021-10-26] MEDS ORDERED: CLEO300C2 PO (20:47)
[2021-10-26] MEDS ORDERED: KETO10TAB PO (20:47)
== END 2021-10-26 21:08 | disposition home or self-care (01) ==
LOC: M ED 19:34
DX: K08.89 Other specified disorders of teeth and supporting structures (principal); Z88.0 Allergy status to penicillin; Z88.1 Allergy status to other antibiotic agents

== ENCOUNTER → 2021-12-30 | Outpatient (CLI) | payer OTHER, MEDICAID ==
[~2021-12-30] MED LIST changes: +KETO10TAB PO
[2021-12-30 16:52] LABS: FREE T4 0.96 NG/DL (0.76-1.46); THYROID STIMULATING HORMONE 0.708 uIU/ML (0.358-3.740)
== END ==
LOC: M ADAMS 13:31
PROVIDERS: ATTEND Nurse Practitioner Family
DX: E06.3 Autoimmune thyroiditis (principal)

== ENCOUNTER → 2022-03-18 | Outpatient (CLI) | payer OTHER ==
[2022-03-18 16:59] LABS: HEMATOCRIT 41.9 % (36.0-47.0); HEMOGLOBIN 13.8 g/dl (12.0-15.5); MEAN CORPUSCULAR HEMOGLOBIN 29.7 pg (27.0-33.0); MEAN CORPUSCULAR HGB CONC 32.9 g/dl (32.0-36.5); MEAN CORPUSCULAR VOLUME 90.1 fl (80.0-96.0); PLATELET COUNT, AUTOMATED 284 10^3/uL (150-450); RED BLOOD COUNT 4.65 10^6/uL (4.00-5.40); WHITE BLOOD COUNT 7.2 10^3/uL (4.0-10.0)
[2022-03-18 19:24] LABS: ALBUMIN 3.6 GM/DL (3.2-5.2); ALT/SGPT 32 U/L (12-78); BILIRUBIN,TOTAL 0.4 MG/DL (0.2-1.0); BLOOD UREA NITROGEN 9 MG/DL (7-18); CARBON DIOXIDE LEVEL 28 MEQ/L (21-32); CHLORIDE LEVEL 108 MEQ/L (98-107); CREATININE FOR GFR 0.66 MG/DL (0.55-1.30); FREE T4 1.05 NG/DL (0.76-1.46); GLOMERULAR FILTRATION RATE > 60.0 (>60); GLUCOSE, FASTING 72 MG/DL (70-100); POTASSIUM SERUM 3.7 MEQ/L (3.5-5.1); SODIUM LEVEL 138 MEQ/L (136-145); TOTAL PROTEIN 7.3 GM/DL (6.4-8.2)
[2022-03-18 22:01] LABS: HEMOGLOBIN A1c 5.4 %
== END ==
LOC: M PLALAB 14:06
PROVIDERS: ATTEND Obstetrics & Gynecology
DX: L68.0 Hirsutism (principal)

== ENCOUNTER → 2022-03-30 | Outpatient (CLI) | payer OTHER | LOC: M WHC 13:54 | PROVIDERS: ATTEND Obstetrics & Gynecology | DX: N94.6 Dysmenorrhea, unspecified (principal) ==

== ENCOUNTER → 2022-11-20 | Outpatient (REF) | payer OTHER ==
[2022-11-20 16:50] LABS: ALBUMIN 4.2 G/DL (3.2-5.2); ALKALINE PHOSPHATASE 83 U/L (46-116); ALT/SGPT 36 U/L (7.0-40); AST/SGOT 17 U/L (<34); BILIRUBIN,TOTAL 0.4 MG/DL (0.3-1.2); BLOOD UREA NITROGEN 10 MG/DL (9-23); CALCIUM LEVEL 9.5 MG/DL (8.5-10.1); CARBON DIOXIDE LEVEL 28 MMOL/L (20-31); CHLORIDE LEVEL 106 MMOL/L (98-107); CHOLESTEROL LEVEL 178 MG/DL (<200); CHOLESTEROL RISK RATIO 3.18 (<5); CREATININE FOR GFR 0.73 MG/DL (0.55-1.30); GLOMERULAR FILTRATION RATE > 60.0 (>60); GLUCOSE, FASTING 77 MG/DL (60-100); HDL CHOLESTEROL 55.9 MG/DL (>40); LDL CHOLESTEROL 109.9 MG/DL (<100); NON-HDL-C 122.1 MG/DL; POTASSIUM SERUM 4.2 MMOL/L (3.5-5.1); SODIUM LEVEL 140 MMOL/L (136-145); TOTAL PROTEIN 7.2 G/DL (5.7-8.2); TRIGLYCERIDES LEVEL 61 MG/DL (<150)
[2022-11-20 16:52] LABS: TOTAL 25(OH) VITAMIN D 19.6 NG/ML (20.0-100.0)
[2022-11-20 16:55] LABS: THYROID STIMULATING HORMONE 1.195 uIU/ML (0.55-4.78)
[2022-11-20 18:52] LABS: HEMOGLOBIN A1c 5.3 % (4.0-6.0)
== END ==
LOC: M LAB REF 16:01
PROVIDERS: ATTEND Nurse Practitioner Family
DX: E06.3 Autoimmune thyroiditis (principal); E66.9 Obesity, unspecified

== ENCOUNTER → 2022-11-23 | Outpatient (CLI) | payer OTHER ==
[2022-11-23 13:08] LABS: HEMATOCRIT 43.6 % (36.0-47.0); HEMOGLOBIN 14.4 g/dl (12.0-15.5); MEAN CORPUSCULAR HEMOGLOBIN 29.8 pg (27.0-33.0); MEAN CORPUSCULAR VOLUME 90.3 fl (80.0-96.0); PLATELET COUNT, AUTOMATED 297 10^3/uL (150-450); RED BLOOD COUNT 4.83 10^6/uL (4.00-5.40); WHITE BLOOD COUNT 6.5 10^3/uL (4.0-10.0)
== END ==
LOC: M PLALAB 11:22
PROVIDERS: ATTEND Internal Medicine Endocrinology, Diabetes & Metabolism
DX: R53.83 Other fatigue (principal)

== ENCOUNTER → 2023-10-07 | Outpatient (REF) | payer OTHER ==
[2023-10-07 14:29] LABS: FREE T4 1.09 NG/DL (0.89-1.76); THYROID STIMULATING HORMONE 0.631 uIU/ML (0.55-4.78)
== END ==
LOC: M LAB REF 12:49
PROVIDERS: ATTEND Nurse Practitioner Family
DX: E06.3 Autoimmune thyroiditis (principal)

== ENCOUNTER 2024-03-14 15:05 | Emergency (ER) | payer OTHER ==
[~2024-03-14] VITALS: Ht 157.5 cm; Wt 75.0 kg
[~2024-03-14 15:05] MED LIST changes: +FLUO-365; -FLUO20CA22; +ONDA-282 PO; -ONDA4TAB6 PO
[2024-03-14 17:47] LABS: BASO % 0.3 % (0.0-1.0); EOS # 0.2 10^3/uL (0.0-0.5); EOS % 2.1 % (0.0-3.0); HEMATOCRIT 43.2 % (36.0-47.0); HEMOGLOBIN 14.3 g/dl (12.0-15.5); LYMPH # 1.8 10^3/uL (1.5-5.0); LYMPH % 23.9 % (24.0-44.0); MEAN CORPUSCULAR HEMOGLOBIN 30.4 pg (27.0-33.0); MEAN CORPUSCULAR HGB CONC 33.1 g/dl (32.0-36.5); MEAN CORPUSCULAR VOLUME 91.7 fl (80.0-96.0); MONO # 0.5 10^3/uL (0.0-0.8); MONO % 6.3 % (2.0-8.0); NEUTROPHILS # 5.1 10^3/uL (1.5-8.5); NEUTROPHILS % 67.1 % (36.0-66.0); PLATELET COUNT, AUTOMATED 257 10^3/uL (150-450); RED BLOOD COUNT 4.71 10^6/uL (4.00-5.40); WHITE BLOOD COUNT 7.6 10^3/uL (4.0-10.0)
[2024-03-14 17:56] LABS: ALBUMIN 4.1 G/DL (3.2-5.2); ALKALINE PHOSPHATASE 65 U/L (46-116); ALT/SGPT 14 U/L (7.0-40); AST/SGOT 8 U/L (<34); BILIRUBIN,TOTAL 0.5 MG/DL (0.3-1.2); BLOOD UREA NITROGEN 10 MG/DL (9-23); CALCIUM LEVEL 9.4 MG/DL (8.5-10.1); CARBON DIOXIDE LEVEL 27 MMOL/L (20-31); CHLORIDE LEVEL 108 MMOL/L (98-107); CREATININE FOR GFR 0.61 MG/DL (0.55-1.30); GLOMERULAR FILTRATION RATE > 60.0 (>60); GLUCOSE, FASTING 90 MG/DL (60-100); POTASSIUM SERUM 3.8 MMOL/L (3.5-5.1); SODIUM LEVEL 141 MMOL/L (136-145)
[2024-03-14] MEDS ORDERED: ISOVUE-370 76% 100ML VIAL As Ordered ONE (19:51)
[2024-03-14 20:07] LABS: CK-MB VALUE MASS < 1.0 NG/ML (<3.6); MAGNESIUM LEVEL 1.9 MG/DL (1.8-2.4)
[2024-03-14 20:09] LABS: CPK CREATINE PHOSPHOKINASE 65 U/L (34-145); MB/CK RELATIVE INDEX 1.53 (< OR =4)
[2024-03-14 20:11] LABS: FREE T4 1.08 NG/DL (0.89-1.76)
[2024-03-14 20:12] LABS: THYROID STIMULATING HORMONE 0.414 uIU/ML (0.55-4.78)
[2024-03-14] MEDS: NS 1,000 ML IV ONE (21:24)
[2024-03-14 22:28] VITALS: BP 102/69; TEMP 97; O2SAT 99
== END 2024-03-14 22:35 | disposition home or self-care (01) ==
LOC: M ED 15:05
DX: R55 Syncope and collapse (principal); E06.3 Autoimmune thyroiditis; F41.9 Anxiety disorder, unspecified; F17.210 Nicotine dependence, cigarettes, uncomplicated; Z79.2 Long term (current) use of antibiotics
CPT/HCPCS: 70491; 74018; 80053; 81001; 82550; 82553; 83735; 84439; 84443; 84484; 85025; 93005; 96360; 99284; Q9967